=== PATIENT | female | born 1995 | race Two or more races ===

== ENCOUNTER 2017-04-20 10:29 | Emergency (ER) | payer OTHER ==
[~2017-04-20] VITALS: Ht 154.9 cm; Wt 103.1 kg
[2017-04-20 10:30] VITALS: BP 155/73
[2017-04-20] MEDS ORDERED: IBUP-1022 PO ×2 (10:39→11:24)
[2017-04-20] MEDS ORDERED: FLON1SPR (11:24)
[2017-04-20] MEDS ORDERED: PENI500T GT (11:24)
[2017-04-20] MEDS ORDERED: SUDA30TA PO (11:24)
[2017-04-20] MEDS ORDERED: DIFL150T PO (11:30)
== END 2017-04-20 11:37 | disposition home or self-care (01) ==
LOC: M ED 10:29
DX: J02.0 Streptococcal pharyngitis (principal); J30.9 Allergic rhinitis, unspecified

== ENCOUNTER → 2017-05-04 | Outpatient (REF) | payer OTHER ==
[~2017-05-04] MED LIST: DIFL150T PO; FLON1SPR; IBUP-1022 PO; PENI500T GT; SUDA30TA PO
== END ==
LOC: M SFHCLERA 19:31
PROVIDERS: ATTEND Nurse Practitioner Family
DX: L29.8 Other pruritus (principal)

== ENCOUNTER 2018-04-29 14:58 | Inpatient (IN) | payer OTHER ==
[2018-04-29] MEDS ORDERED: PENICILLIN G POTASSIUM IV 5 MU in D5W MINI-BAG PLUS 100 ML IV (16:26)
[2018-04-29] MEDS: miSOPROStol 50 MCG 1/2 TAB (S0191) PO ×2 (16:42→22:14)
[2018-04-29 20:23] LABS: BASO % 0.3 % (0.0-1.0); EOS # 0.2 10^3/uL (0.0-0.50); EOS % 2.1 % (0.0-3.0); HEMATOCRIT 36.2 % (36.0-47.0); IMMATURE GRANULOCYTE % 0.4 % (0-3.0); LYMPH # 1.9 10^3/uL (1.5-6.5); LYMPH % 17.9 % (24.0-44.0); MEAN CORPUSCULAR HEMOGLOBIN 29.8 pg (27.0-33.0); MEAN CORPUSCULAR HGB CONC 33.1 g/dl (32.0-36.5); MEAN CORPUSCULAR VOLUME 89.8 fl (80.0-96.0); MONO # 0.6 10^3/uL (0.0-0.8); MONO % 5.8 % (0.0-5.0); NEUTROPHILS # 7.9 10^3/uL (1.8-7.7); NEUTROPHILS % 73.5 % (36.0-66.0); PLATELET COUNT, AUTOMATED 153 10^3/uL (150-450); RED BLOOD COUNT 4.03 10^6/uL (4.00-5.40); RED CELL DISTRIBUTION WIDTH 13.6 % (11.5-14.5); WHITE BLOOD COUNT 10.7 10^3/uL (4.0-10.0)
[2018-04-29] MEDS ORDERED: PENICILLIN G POTASSIUM IV 2.5 MU in APPROPRIATE DILUENT 1 EA IV (20:30)
[2018-04-30] MEDS ORDERED: PENICILLIN G POTASSIUM 5 MU VIAL As Ordered (08:45)
[2018-04-30] MEDS ORDERED: **PENDING PCN ENTRY XX (09:00)
[2018-04-30] MEDS: OXYTOCIN DRIP 30 UNITS in APPROPRIATE DILUENT 1 EA IV (09:24)
[2018-04-30] MEDS: PENICILLIN G POTASSIUM IV 5 MU in D5W MINI-BAG PLUS 100 ML IV (09:37)
[2018-04-30] MEDS: PENICILLIN G POTASSIUM IV 2.5 MU in APPROPRIATE DILUENT 1 EA IV ×3 (14:15→22:01)
[2018-05-01] MEDS: PENICILLIN G POTASSIUM IV 2.5 MU in APPROPRIATE DILUENT 1 EA IV ×3 (02:56→10:35)
[2018-05-01] MEDS: BICITRA 30ML SOLN UDC PO (12:22)
[2018-05-01] MEDS ORDERED: MORPHINE PRES-FREE INJ 10 MG/10 ML VIAL (J2274) As Ordered (12:26)
[2018-05-01] MEDS ORDERED: OXYTOCIN INJ 10 UNITS/ML VIAL (J2590) As Ordered ×4 (12:29)
[2018-05-01] MEDS ORDERED: ONDANSETRON 4MG/2ML VIAL (J2405) IV ×2 (12:44→13:45)
[2018-05-01] MEDS ORDERED: METOCLOPRAMIDE INJ 10MG/2ML VIAL (J2765) IV (12:44)
[2018-05-01] MEDS ORDERED: NALBUPHINE HCL 10 MG/ML AMP (J2300) IV (12:44)
[2018-05-01] MEDS ORDERED: NALOXONE INJ 0.4 MG/1 ML VIAL (J2310) IV ×2 (12:44)
[2018-05-01] MEDS ORDERED: PHENYLephrine HCL 500 MCG/5 ML (100MCG/ML) SYRINGE (J2370) As Ordered (13:14)
[2018-05-01] MEDS ORDERED: ePHEDrine SULFATE 25 MG/5 ML(5MG/ML) SYRINGE As Ordered (13:14)
[2018-05-01] MEDS ORDERED: ONDANSETRON 4MG/2ML VIAL (J2405) As Ordered (13:14)
[2018-05-01] MEDS ORDERED: KETOROLAC 60 MG/2 ML VIAL (J1885) As Ordered (13:14)
[2018-05-01 13:15] LABS: CORD GAS ABE A -6.6; CORD GAS HCO3 A 23.7 MEQ/L; CORD GAS O2 SAT A < 15.0 %; CORD GAS PCO2 A 67.5 mmHg; CORD GAS PH A 7.163 UNITS; CORD GAS PO2 A 12.7 mmHg; CORD GAS TCO2 A 25.8 MEQ/L
[2018-05-01 13:17] LABS: CORD GAS ABE V -7.9; CORD GAS HCO3 V 20.7 MEQ/L; CORD GAS O2 SAT V 34.6 %; CORD GAS PCO2 V 53.8 mmHg; CORD GAS PH V 7.204 UNITS; CORD GAS PO2 V 20.4 mmHg; CORD GAS SBC V 16.7 MEQ/L; CORD GAS TCO2 V 22.4 MEQ/L
[2018-05-01] MEDS ORDERED: MEASLES,MUMPS,RUBELLA VACCINE INJ (MMR-II) (90707) SC (13:45)
[2018-05-01] MEDS ORDERED: MEPERIDINE INJ 25 MG/ML VIAL (J2175) IV (13:45)
[2018-05-01] MEDS ORDERED: fentaNYL 100 MCG/2 ML INJECTION (J3010) IV (13:45)
[2018-05-01] MEDS ORDERED: RHOGAM 300 MCG (1500 IU) INJ (J2790) IM (13:45)
[2018-05-01] MEDS ORDERED: PERCOCET 5MG/325MG TAB PO ×2 (13:45)
[2018-05-01] MEDS ORDERED: HYDROMORPHONE HCL 0.5 MG/ 0.5 ML SYRINGE (J1170 PER 1) IV (13:45)
[2018-05-01] MEDS ORDERED: NALBUPHINE HCL 10 MG/ML AMP (J2300) As Ordered (14:10)
[2018-05-01] MEDS: NALBUPHINE HCL 10 MG/ML AMP (J2300) IV (14:12)
[2018-05-01] MEDS: LR 1,000 ML IV ×3 (15:31→21:45)
[2018-05-01] MEDS: METOCLOPRAMIDE INJ 10MG/2ML VIAL (J2765) IV (18:23)
[2018-05-01] MEDS: ENOXAPARIN 60 MG/0.6 ML SYR (J1650) SC (20:18)
[2018-05-01] MEDS: KETOROLAC 30 MG/ML VIAL (J1885) IV (20:20)
[2018-05-01] MEDS: DOCUSATE SODIUM 100 MG CAP PO (20:21)
[2018-05-02] MEDS: KETOROLAC 30 MG/ML VIAL (J1885) IV ×3 (02:09→14:52)
[2018-05-02] MEDS: LR 1,000 ML IV (05:45)
[2018-05-02] MEDS: ENOXAPARIN 60 MG/0.6 ML SYR (J1650) SC (07:14)
[2018-05-02 07:16] LABS: HEMATOCRIT 31.7 % (36.0-47.0); HEMOGLOBIN 10.7 g/dl (12.0-15.5); MEAN CORPUSCULAR HEMOGLOBIN 30.3 pg (27.0-33.0); MEAN CORPUSCULAR HGB CONC 33.8 g/dl (32.0-36.5); MEAN CORPUSCULAR VOLUME 89.8 fl (80.0-96.0); PLATELET COUNT, AUTOMATED 138 10^3/uL (150-450); RED BLOOD COUNT 3.53 10^6/uL (4.00-5.40); WHITE BLOOD COUNT 9.6 10^3/uL (4.0-10.0)
[2018-05-02] MEDS: PRENATAL VITAMINS CHEWABLE TABLET PO (08:42)
[2018-05-02] MEDS: DOCUSATE SODIUM 100 MG CAP PO ×2 (08:42→21:09)
[2018-05-02] MEDS: IBUPROFEN 800 MG TAB PO (21:09)
[2018-05-03] MEDS: PERCOCET 5MG/325MG TAB PO ×4 (00:25→12:43)
[2018-05-03] MEDS: IBUPROFEN 800 MG TAB PO (06:03)
[2018-05-03] MEDS: ENOXAPARIN 60 MG/0.6 ML SYR (J1650) SC (06:03)
[2018-05-03] MEDS: PRENATAL VITAMINS CHEWABLE TABLET PO (08:16)
[2018-05-03] MEDS: DOCUSATE SODIUM 100 MG CAP PO (08:17)
== END 2018-05-03 13:05 | disposition home or self-care (01) | DRG 765 ==
LOC: M LDI 14:58 → M OBS 05-01 15:13
PROVIDERS: Obstetrics & Gynecology
PROC: 10D00Z1 Extraction of Products of Conception, Low, Open Approach (ICD-10-PCS; principal; 2018-05-01 12:38)
PROC: 3E0P7GC Introduction of Other Therapeutic Substance into Female Reproductive, Via Natural or Artificial Opening (ICD-10-PCS; 2018-05-01 12:38)
DX: O99.214 Obesity complicating childbirth (principal); Z68.41 Body mass index [BMI] 40.0-44.9, adult; E66.01 Morbid (severe) obesity due to excess calories; Z3A.40 40 weeks gestation of pregnancy; O48.0 Post-term pregnancy; O99.824 Streptococcus B carrier state complicating childbirth; O61.0 Failed medical induction of labor; Z37.0 Single live birth

== ENCOUNTER 2018-08-23 05:54 | Emergency (ER) | payer OTHER ==
[2018-08-23] MEDS: NS 1,000 ML IV (06:32)
[2018-08-23 06:34] LABS: BEDSIDE GLUCOSE 99 MG/DL (70-105)
[2018-08-23 06:46] LABS: BASO % 0.4 % (0.0-1.0); EOS # 0.1 10^3/uL (0.0-0.50); EOS % 2.1 % (0.0-3.0); HEMATOCRIT 41.8 % (36.0-47.0); HEMOGLOBIN 13.9 g/dl (12.0-15.5); IMMATURE GRANULOCYTE % 0.4 % (0-3.0); LYMPH # 1.2 10^3/uL (1.5-6.5); LYMPH % 25.4 % (24.0-44.0); MEAN CORPUSCULAR HEMOGLOBIN 28.5 pg (27.0-33.0); MEAN CORPUSCULAR HGB CONC 33.3 g/dl (32.0-36.5); MEAN CORPUSCULAR VOLUME 85.8 fl (80.0-96.0); MONO # 0.4 10^3/uL (0.0-0.8); NEUTROPHILS % 62.7 % (36.0-66.0); PLATELET COUNT, AUTOMATED 197 10^3/uL (150-450); RED BLOOD COUNT 4.87 10^6/uL (4.00-5.40); RED CELL DISTRIBUTION WIDTH 13.2 % (11.5-14.5); WHITE BLOOD COUNT 4.8 10^3/uL (4.0-10.0)
[2018-08-23 07:16] LABS: ALBUMIN 3.6 GM/DL (3.2-5.2); ALBUMIN/GLOBULIN RATIO 0.97 (1.00-1.93); ALKALINE PHOSPHATASE 112 U/L (45-117); ALT/SGPT 25 U/L (12-78); AMYLASE 35 U/L (25-115); ANION GAP 9 MEQ/L (8-16); AST/SGOT 24 U/L (7-37); BILIRUBIN,DIRECT 0.1 MG/DL (0.0-0.2); BILIRUBIN,TOTAL 0.4 MG/DL (0.2-1.0); BLOOD UREA NITROGEN 10 MG/DL (7-18); CALCIUM LEVEL 8.4 MG/DL (8.5-10.1); CARBON DIOXIDE LEVEL 21 MEQ/L (21-32); CHLORIDE LEVEL 110 MEQ/L (98-107); GLOMERULAR FILTRATION RATE > 60.0 (>60); GLUCOSE, FASTING 97 MG/DL (70-100); LIPASE 138 U/L (73-393); POTASSIUM SERUM 3.8 MEQ/L (3.5-5.1); SODIUM LEVEL 140 MEQ/L (136-145); TOTAL PROTEIN 7.3 GM/DL (6.4-8.2)
[2018-08-23 07:18] LABS: CONTROL LINE HCG INT CTR LINE PRESENT; HCG, SERUM QUALITATIVE NEGATIVE (NEGATIVE)
== END 2018-08-23 09:32 | disposition home or self-care (01) ==
LOC: M ED 05:54
DX: E86.0 Dehydration (principal)
CPT/HCPCS: 82150